=== PATIENT | female | born 1965 | race Two or more races ===

== ENCOUNTER 2024-02-09 10:23 | Inpatient (IN) | payer OTHER ==
[~2024-02-09] VITALS: Ht 149.9 cm; Wt 80.0 kg
[2024-02-09] VITALS (7 sets, daily range): BP systolic 140–141; BP diastolic 70–74; PULSE 67–106; RESP 17–22; TEMP 98–98.7; O2SAT 94–97
[2024-02-09] MEDS: methylPREDNISolone SOD SUCC 125 MG/2 ML VL IV ONE (10:49)
[2024-02-09] MEDS: IPRATROPIUM BROM 0.5 MG/2.5ML INH SOL HHN ONE (11:19)
[2024-02-09] MEDS: ALBUTEROL SULF 2.5 MG/0.5ML(0.5%) NEB SOLN HHN ONE (11:20)
[2024-02-09 11:29] LABS: Basophils # (auto) 0.1 10 ^3/uL (0-0.2); Basophils % (auto) 0.8 % (0.0-2.0); Eosinophils # (auto) 0 10 ^3/uL (0-0.8); Eosinophils % (auto) 0.1 % (0.0-7.0); Hemoglobin 11.4 g/dL (12.2-16.2); Lymphocytes # (auto) 0.9 10 ^3/uL (0.4-5.4); Lymphocytes % (auto) 9.1 % (10.0-50.0); Mean Corpuscular Hemoglobin 31.5 pg (28.0-32.0); Mean Corpuscular Hgb Conc. 33.4 g/dL (32.0-36.0); Mean Corpuscular Volume 94.2 fL (80.0-100.0); Monocytes # (auto) 0.9 10 ^3/uL (0-1.3); Monocytes % (auto) 9.3 % (0.0-12.0); Neutrophils # (auto) 7.6 10 ^3/uL (1.6-8.6); Neutrophils % (auto) 80.7 % (37.0-80.0); Nucleated Red Blood Cells % 0.1 %; Red Blood Cells 3.61 10^6/uL (4.0-5.20); Red Cell Distribution Width 16.8 % (11.8-14.3); White Blood Cell 9.4 10^3/uL (4.4-10.8)
[2024-02-09 11:57] LABS: Anion Gap 8 (5-15); Carbon Dioxide 33 mmol/L (20-30); Chloride 93 mmol/L (98-107); Sodium 134 mmol/L (136-145)
[2024-02-09 12:03] LABS: BUN/Creatinine Ratio 4.1 (10.0-20.0); Blood Urea Nitrogen 18 mg/dL (9-23); Glucose 108 mg/dL (74-106)
[2024-02-09] MEDS: FUROSEMIDE 40 MG/4 ML VIAL IV ONE (15:13)
[2024-02-09] MEDS ORDERED: MORPHINE SULFATE INJ 2 MG/ml SYRG IV PRN ×2 (15:15)
[2024-02-09] MEDS ORDERED: HYDROcodone-ACET 5/325MG TAB PO PRN (15:15)
[2024-02-09] MEDS ORDERED: DOCUSATE SOD 100 MG CAP PO PRN (15:15)
[2024-02-09] MEDS ORDERED: NITROGLYCERIN 0.4 MG SL TAB SL PRN (15:15)
[2024-02-09] MEDS ORDERED: MONT-8 PO (15:34)
[2024-02-09] MEDS ORDERED: AMLO1TAB23 PO (15:34)
[2024-02-09] MEDS ORDERED: METO-289 PO (15:34)
[2024-02-09] MEDS ORDERED: GABA-1250 PO (15:34)
[2024-02-09] MEDS ORDERED: ISOS1TAB28 PO (15:34)
[2024-02-09] MEDS ORDERED: ATOR40TA52 PO (15:34)
[2024-02-09] MEDS ORDERED: LISI-275 PO (15:34)
[2024-02-09] MEDS ORDERED: SEVE800T10 PO (15:34)
[2024-02-09] MEDS ORDERED: DEXTROSE (50%) 50ML SYRG IV PRN (17:15)
[2024-02-09] MEDS: CALCIUM ACETATE 667 MG CAP PO SCH (19:04)
[2024-02-09] MEDS: SEVELAMER 800 MG TAB PO SCH (19:04)
[2024-02-09] MEDS: ALBUTEROL SULF 2.5 MG/0.5ML(0.5%) NEB SOLN NEB PRN (20:14)
[2024-02-09] MEDS: IPRATROPIUM BROM 0.5 MG/2.5ML INH SOL NEB PRN (20:14)
[2024-02-09] MEDS: ATORVASTATIN 20 MG TAB PO SCH (21:19)
[2024-02-09] MEDS: GABAPENTIN 300 MG CAP PO SCH (21:19)
[2024-02-09] MEDS: ACCU-CHEK COMFORT CURVE STRIP VI SCH (21:26)
[2024-02-09] MEDS: InsuLIN REG 1unit/0.01ml Soln (100units/ml) SC SCH (21:32)
[2024-02-09] MEDS ORDERED: SEVELAMER CARBONATE PO SCH (22:00)
[2024-02-10] VITALS (13 sets, daily range): BP systolic 122–161; BP diastolic 60–89; PULSE 75–91; RESP 17–21; TEMP 97.8–98.1; O2SAT 91–100
[2024-02-10] MEDS: ONDANSETRON HCL 4 MG/2 ML VIAL IV PRN (01:32)
[2024-02-10] MEDS: ACETAMINOPHEN 500 MG TAB PO PRN (05:06)
[2024-02-10] MEDS ORDERED: SODIUM CHL 0.9% 1000 ML BAG XX ONE (05:45)
[2024-02-10] MEDS: MONTELUKAST SODIUM 10 MG TAB PO SCH (09:15)
[2024-02-10] MEDS ORDERED: DEXTROSE (50%) 50ML SYRG IV PRN (09:15)
[2024-02-10] MEDS: METOPROLOL SUCCINATE XL 50 MG TAB PO SCH (09:16)
[2024-02-10] MEDS: ISOSORBIDE MONONITRATE ER 60 MG TAB PO SCH (10:00)
[2024-02-10] MEDS: amLODIPine BESYLATE 5 MG TAB PO SCH (10:00)
[2024-02-10] MEDS ORDERED: PATIENTS OWN MEDICATION (Amlodipine Besylate 1 TAB) PO SCH (10:00)
[2024-02-10] MEDS ORDERED: PATIENTS OWN MEDICATION (Atorvastatin Calcium 1 TAB) PO SCH (10:00)
[2024-02-10] MEDS: LISINOPRIL 5 MG TAB PO SCH (10:00)
[2024-02-10] MEDS ORDERED: PATIENTS OWN MEDICATION (Isosorbide Mononitrate (Isosorbide Mononitrate Er) 1 TAB) PO SCH (10:00)
[2024-02-10] MEDS: ACCU-CHEK COMFORT CURVE STRIP VI SCH (13:50)
[2024-02-10] MEDS: InsuLIN REG 1unit/0.01ml Soln (100units/ml) SC SCH (13:58)
[2024-02-10] MEDS ORDERED: Nepro With Carbsteady ButterPecan 8oz Carton PO SCH (18:00)
[2024-02-10] MEDS ORDERED: InsuLIN REG 1unit/0.01ml Soln (100units/ml) SC SCH (22:00)
[2024-02-11] MEDS ORDERED: GABAPENTIN 300 MG CAP PO SCH (10:00)
== END 2024-02-10 18:20 | disposition short-term general hospital (02) | DRG 189 ==
LOC: ER 10:23 → TELE 15:34 → TELE-CENTR 18:19
PROVIDERS: ADMIT Nurse Practitioner Acute Care; ATTEND Nurse Practitioner Acute Care
PROC: 5A1D70Z Performance of Urinary Filtration, Intermittent, Less than 6 Hours Per Day (ICD-10-PCS; principal; 2024-02-10)
DX: J96.01 Acute respiratory failure with hypoxia (principal); I50.23 Acute on chronic systolic (congestive) heart failure; N18.6 End stage renal disease; I13.2 Hypertensive heart and chronic kidney disease with heart failure and with stage 5 chronic kidney disease, or end stage renal disease; J44.89 Other specified chronic obstructive pulmonary disease; E66.9 Obesity, unspecified; E78.5 Hyperlipidemia, unspecified; D63.1 Anemia in chronic kidney disease; E11.22 Type 2 diabetes mellitus with diabetic chronic kidney disease; K58.9 Irritable bowel syndrome, unspecified; I25.10 Atherosclerotic heart disease of native coronary artery without angina pectoris; E11.42 Type 2 diabetes mellitus with diabetic polyneuropathy; Z79.4 Long term (current) use of insulin; Z88.1 Allergy status to other antibiotic agents; Z86.73 Personal history of transient ischemic attack (TIA), and cerebral infarction without residual deficits; Z99.2 Dependence on renal dialysis; Z83.3 Family history of diabetes mellitus; Z68.36 Body mass index [BMI] 36.0-36.9, adult
CPT/HCPCS: 36415; 71045; 80048; 82962; 83605; 83880; 85025; 87040; 87340; 90935; 93306; 94640; 94644; 99291; G0378; J1642; J1815; J2405